=== PATIENT | female | born 1990 ===

== ENCOUNTER 2017-03-08 21:48 | Emergency (ER) | payer OTHER ==
[~2017-03-08] VITALS: Ht 152.4 cm; Wt 85.7 kg
[~2017-03-08 21:48] MED LIST: ANTIVERT 25MG #1 PAC PO; EPIPEN 2-PAK1 MG/ML IM; FIORICET 325 MG1 TAB PO; PROTONIX 40MG T40 MG PO; SUCRALFATE1 GM PO; VICODIN5-300 PO
--- NOTE | 2017-03-08 22:58 | ED GENERAL ADULT ---
History of Present Illness General Chief Complaint: Sore Throat, Dental Pain Stated Complaint: R SIDED JAW AND THROAT PAIN, SEEING DENTIST SAT Source: patient Exam Limitations: no limitations Vital Signs & Intake/Output Vital Signs & Intake/Output Vital Signs Date Time Temp Pulse Resp B/P B/P Pulse O2 O2 Flow FiO2 Mean Ox Delivery Rate 03/083 97.8 69 18 138/92 98 Room Air Allergies Coded Allergies: morphine (RASH AT IV SITE 01/01/16) venom-honey bee (BEE VENOM (HONEY BEE)) (ANAPHYLAXIS 01/01/16) Reconcile Medications Epinephrine (Epipen 2-Destin Auto-Injector) 1 MG/ML KIT 0.3 mg IM PRN PRN SEVERE ALLERGIC REACTION Oxycodone HCl/Acetaminophen (Percocet 5-325 MG Tablet) 5 MG-325 MG TABLET 1 TAB PO BID PAIN Penicillin V Potassium 500 MG TABLET 1 TAB PO TID PHARYGITIS Triage Note: PRESENTS TO ED FOR EVALUATION OF RIGHT BOTTOM JAW PAIN. REPORTS TO HAVE AN APPOINTMENT WITH DENTIST THIS UPCOMING SATURDAY. HAS BEEN TAKING MOTRIN AND TYLENOL WITIH LITTLE PAIN RELIEVE. Triage Nurses Notes Reviewed? yes Onset: Abrupt Duration: day(s): Timing: recent history : No Patient currently breastfeeds: No HPI: 03/08/17 11 PM 27-year-old female presents to the emergency department for severe right sided facial pain. The patient states she was in her usual state of health until approximately 4 days ago when she developed right-sided facial pain. She says is so painful when she opens and closes her jaw it hurts and she has limited ability to do this. She also has a sore throat. She also has right ear pain. She denies fever. She says she does have a history of having wisdom teeth extracted in the upper jaw for a similar problem years ago. She called her dentist but has not been able to follow up with him yet. The onset of the symptoms was gradual, the duration has been 4-5 days, the severity significant as her symptoms required her to come to the emergency department for care. On physical exam she is in mild distress secondary to pain. Past History Travel History Traveled to [place] past 21 day No Medical History Any Pertinent Medical History? 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 No Review of Systems Review of Systems Constitutional: Denies: fever. EENTM: Reports: see HPI. Respiratory: Denies: short of breath. Cardiovascular: Denies: chest pain. GI: Denies: abdominal pain. Genitourinary: Reports: no symptoms. Musculoskeletal: Reports: no symptoms. Skin: Reports: no symptoms. Neurological/Psychological: Reports: no symptoms. Hematologic/Endocrine: Reports: no symptoms. Immunologic/Allergic: Reports: no symptoms. Physical Exam Physical Exam General Appearance: alert, awake, anxious, mild distress Head: atraumatic Eyes: Bilateral: normal appearance, PERRL, EOMI. Ears, Nose, Throat: normal pharynx Neck: supple, lymphadenopathy (R) Respiratory: chest non-tender, no respiratory distress Cardiovascular: regular rate/rhythm Gastrointestinal: soft, non-tender Back: normal range of motion Extremities: normal inspection, normal range of motion, no edema Neurologic/Psych: no motor/sensory deficits, awake, alert, oriented x 3 Skin: intact, normal color, warm/dry Comments: On physical exam she does have bilateral anterior cervical adenopathy right greater than left. The posterior pharynx is normal. There is no stridor. There is no brawny edema to the mouth. There is no tongue protrusion. There is no evidence of peritonsillar abscess. No uvular deviation. Core Measures ACS in differential dx? No CVA/TIA Diagnosis: No Severe Sepsis Present: No Septic Shock Present: No Progress Differential Diagnoses I considered the following diagnoses in my evaluation of the patient: [Cb angina, peritonsillar abscess, retropharyngeal abscess, dental abscess, dental caries, facial cellulitis, otitis media] Plan of Care: Current Medications Sig/Ambrocio Start time Last Medication Dose Stop Time Status Admin Dexamethasone 8 MG ONCE ONE 03/08 2300 UNVr (Decadron) 03/08 2301 Ketorolac 60 MG ONCE ONE 03/08 2300 UNVr Tromethamine 03/08 2301 (Toradol) Penicillin V 500 MG ONCE ONE 03/08 2300 UNVr Potassium 03/08 2301 (Pen V K 250MG. Tablet) Initial ED EKG: none Departure Departure Disposition: HOME OR SELF CARE Condition: Stable Clinical Impression Primary Impression: Dental caries Secondary Impressions: Pharyngitis Referrals: PATIENT HAS NO PRIMARY CARE DR (PCP/Family) Departure Forms: Customer Survey General Discharge Information Prescriptions: Current Visit Scripts Penicillin V Potassium 1 TAB PO TID #30 TAB Oxycodone HCl/Acetaminophen (Percocet 5-325 MG Tablet) 1 TAB PO BID #10 TAB Comments Patient was treated with Decadron IM Toradol in the emergency department. She was given penicillin and Percocet to go home. She was instructed to follow-up with her dentist tomorrow She has tenderness to the find her #17 right sided posterior molar. The #18 tooth has been extracted. No palpable abscess. Critical Care Note Critical Care Note Critical Care Time: non-applicable
[2017-03-08] MEDS ORDERED: PENICILLIN V P500 M1 PO (23:06)
[2017-03-08] MEDS ORDERED: PERCOCET 5-3251 EACH PO (23:06)
[2017-03-08 23:16] VITALS: BP 125/82
== END 2017-03-08 23:18 ==
LOC: ERH 21:48
DX: K02.9 Dental caries, unspecified (principal); J02.9 Acute pharyngitis, unspecified
CPT/HCPCS: 96372; J1885

== ENCOUNTER 2018-01-28 17:53 | Emergency (ER) | payer OTHER ==
[~2018-01-28] VITALS: Ht 152.4 cm; Wt 90.7 kg
[~2018-01-28 17:53] MED LIST changes: +PENICILLIN V P500 M1 PO; +PERCOCET 5-3251 EACH PO
[2018-01-28 19:15] LABS: ABSOLUTE BASOPHIL COUNT 0 /CUMM (0.0-0.2); ABSOLUTE EOSINOPHIL COUNT 0.3 /CUMM (0.0-0.7); ABSOLUTE GRANULOCYTE CT 4.3 /CUMM (1.4-6.5); ABSOLUTE LYMPH COUNT 3.4 /CUMM (1.2-3.4); ABSOLUTE MONOCYTE COUNT 0.7 /CUMM (0.10-0.60); BASOPHIL % 0.4 % (0.0-2.0); GRANULOCYTE % 49.4 % (42.2-75.2); HEMATOCRIT 39.7 % (37-47); MEAN CORPUSCULAR HGB 28.6 PG (27.0-31.0); MEAN CORPUSCULAR HGB CONC 32.8 G/DL (33.0-37.0); MEAN CORPUSCULAR VOLUME 87.1 FL (81.0-99.0); MEAN PLATELET VOLUME 8.1 FL (7.4-10.4); PLATELET COUNT 324 /CUMM (130-400); RBC DISTRIBUTION WIDTH 13.3 % (11.5-14.5); RED BLOOD CELL CT 4.56 /CUMM (4.20-5.40); WHITE BLOOD CELL COUNT 8.8 /CUMM (4.8-10.8)
--- NOTE | 2018-01-28 21:12 | RADIOLOGY REPORT ---
EXAMINATION: XR CHEST CLINICAL INFORMATION: Chest pain. COMPARISON: None TECHNIQUE: 2 views of the chest were obtained. FINDINGS: No airspace opacities or pleural effusions are seen. The cardiomediastinal silhouette is normal. No acute osseous abnormality is seen. IMPRESSION: Clear lungs. No acute process.
--- NOTE | 2018-01-28 21:24 | ED CARDIAC/CP/PALPITATIONS ---
History of Present Illness General Chief Complaint: Chest Pain Stated Complaint: CHEST PAIN Source: patient, old records Exam Limitations: no limitations Vital Signs & Intake/Output Vital Signs & Intake/Output Vital Signs Date Time Temp Pulse Resp B/P B/P Pulse O2 O2 Flow FiO2 Mean Ox Delivery Rate 01/289 98.9 69 18 139/78 98 Room Air 01/28 1902 98.6 78 16 136/89 97 Room Air Allergies Coded Allergies: morphine (RASH AT IV SITE 01/01/16) venom-honey bee (BEE VENOM (HONEY BEE)) (ANAPHYLAXIS 01/01/16) Reconcile Medications Epinephrine (Epipen 2-Destin Auto-Injector) 1 MG/ML KIT 0.3 mg IM PRN PRN SEVERE ALLERGIC REACTION Oxycodone HCl/Acetaminophen (Percocet 5-325 MG Tablet) 5 MG-325 MG TABLET 1 TAB PO BID PAIN Penicillin V Potassium 500 MG TABLET 1 TAB PO TID PHARYGITIS Triage Note: PT STATES SHE WAS HAVING 2 EPISODES OF TIGHTNESS IN HER CHEST THAT LASTED TWO TO THREE MINUTES A PIECE. PT STATES SHE WAS HAVING SOB DURING TWO EPISODES. PT STATES SHE WAS JUST WALKING AROUND THE HOUSE AND THE PAIN BEGAN. Triage Nurses Notes Reviewed? yes Onset: Abrupt Duration: minute(s):, better, resolved prior to arrival Timing: recent history Quality/Severity: mild, aching Location: substernal Radiation: no radiation Activities at Onset: none Prior Chest Pain/Card Workup: SIMILAR SYMPTOMS Nitro Today/Relief: no nitro taken today Aspirin Today: no aspirin today Associated Symptoms: DENIES : No Patient currently breastfeeds: No HPI: 28-year-old female history of asthma presents to the ER for evaluation complaining of intermittent episodes of left-sided chest pain non-radiating that lasts 1-2 minutes prior to resolving on its own. She denies radiation of the pain into her arm neck or jaw. She has had similar episodes in the past however has not sought care. She denies any associated shortness of breath or pain with inspiration. She is not had any episodes since 4:00 today. Symptoms were not associated with rest eating and drinking. No abdominal pain nausea vomiting. She does not smoke. No family history of same cardiac disease. She is on control no recent immobility (Bouchra WORKMAN,Lul) Past History Travel History Traveled to [place] past 21 day No Medical History Any Pertinent Medical History? 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 No (Lul Muhammad) Review of Systems Review of Systems Constitutional: Reports: see HPI. Comments Review of systems: See HPI, All other systems negative. Constitutional, no chills no fever, HEENT: no sore throat no congestion, no ear pain Cardiovascular: chest pain , no palpitation Skin: no rashes, no change in skin Respiratory: No dyspnea no cough no sputum no hemoptysis GI: No nausea no vomiting, no diarrhea, no bloating/constipation Muscle skeletal: No joint pain, no back pain Neurologic: , no headache Heme/endocrine: No bruising Immunology: No lymphadenopathy (Lul Muhammad) Physical Exam Physical Exam General Appearance: well developed/nourished, no apparent distress, alert Cardiovascular: regular rate/rhythm Comments: Well-developed well-nourished person in no acute distress HEENT: Normal EENT exam; PERRL, EOMI, HEAD is atraumatic. moist mucous membranes. Neck: Supple, normal range of motion without pain or tenderness Back: N Full range of motion Cardiovascular: Regular rate and rhythms no murmurs rub Respiratory: Chest nontender.There were no bony deformities, no asymmetry. No respiratory distress. Patient speaking in full complete sentences. Breath sounds clear to auscultation bilaterally: NO W/R/R Abdomen: Soft, nontender Extremity: No edema, full range of motion of extremities Neuro: Alert oriented x3, motor sensory normal, There were no obvious focal neurologic abnormalities. Skin: No appreciable rash on exposed skin, skin is warm and dry. Psych: Mood and affect is normal, memory and judgment is normal. Core Measures ACS in differential dx? Yes CVA/TIA Diagnosis No Sepsis Present: No Sepsis Focused Exam Completed? No All Positive = PERC Ruled Out: Positive: age < 50 years, heart rate < 100 bpm, O2 sat > 94%, no hemoptysis, no hormone use, no prior DVT or PE, no unilateral leg swellin, no surgery/trauma w/ in 4w. (Bouchra OWRKMAN,uLl) Progress Differential Diagnosis: AMI, aortic dissection, atrial fibrillation, CHF/pulm edema, musculoskeletal pain, myocarditis, pericarditis, pneumonia, pulmonary embolism, unstable angina Plan of Care: Orders Procedure Date/time Status Add-on Test (ER Only) 01/29 1916 Active TROPONIN LEVEL 01/28 1906 Complete HUMAN BETA HCG SCREEN 01/28 1906 Complete COMPREHENSIVE METABOLIC PANEL 01/28 1906 Complete CBC WITHOUT DIFFERENTIAL 01/28 1906 Complete EKG 01/28 1802 Active Laboratory Tests 01/28/181915: Urine Color Cancelled, Urine Clarity Cancelled, Urine pH Cancelled, Ur Specific Warren Cancelled, Urine Protein Cancelled, Urine Ketones Cancelled, Urine Nitrite Cancelled, Urine Bilirubin Cancelled, Urine Urobilinogen Cancelled, Ur Leukocyte Esterase Cancelled, Ur Microscopic Cancelled, Urine Hemoglobin Cancelled, Urine Glucose Cancelled 01/28/181905: Anion Gap 11, Estimated GFR > 60, BUN/Creatinine Ratio 16.3, Glucose 104 H, Calcium 9.3, Total Bilirubin 0.5, AST 22, ALT 31, Alkaline Phosphatase 45, Troponin I < 0.01, Total Protein 7.7, Albumin 4.3, Globulin 3.4, Albumin/ Globulin Ratio 1.3, Total Beta HCG NEGATIVE, CBC w Diff NO MAN DIFF REQ, RBC 4.56, MCV 87.1, MCH 28.6, MCHC 32.8 L, RDW 13.3, MPV 8.1, Gran % 49.4, Lymphocytes % 39.2, Monocytes % 8.0, Eosinophils % 3.0, Basophils % 0.4, Absolute Granulocytes 4.3, Absolute Lymphocytes 3.4, Absolute Monocytes 0.7 H, Absolute Eosinophils 0.3, Absolute Basophils 0 PERC NEGATIVE. I discussed with the patient at length all of her results she is permitted a symptomatically in the ER normal sinus on the monitor. Patient's troponin negative low risk no family history of sudden cardiac disease I discussed with her plan of care she has had similar episodes in the past per her friend. I discussed with the plan of care she'll follow-up with primary care. Diagnostic Imaging: Viewed by Me: Radiology Read. Discussed w/RAD: Radiology Read. Radiology Impression: PATIENT: RUDI LIVINGSTON PRESENT AGE: 28 PATIENT ACCOUNT NO: [id number] : 89 LOCATION: [facility] ORDERING PHYSICIAN: David WORKMAN SERVICE DATE: 01/28/18 EXAM TYPE: RAD - XRY- CHEST XRAY, TWO VIEWS EXAMINATION: XR CHEST CLINICAL INFORMATION: Chest pain. COMPARISON: None TECHNIQUE: 2 views of the chest were obtained. FINDINGS: No airspace opacities or pleural effusions are seen. The cardiomediastinal silhouette is normal. No acute osseous abnormality is seen. IMPRESSION: Clear lungs. No acute process. DICTATED BY: Lasha Blackwood MD DATE/TIME DICTATED:08/07 HOUSING QUALITY STANDARD INSPECTOR:CECILIO DATE/TIME TRANSCRIBED:01/28/182101 CONFIDENTIAL, DO NOT COPY WITHOUT APPROPRIATE AUTHORIZATION. <Electronically signed in Other Vendor System> SIGNED BY: Lasha Blackwood MD 01/28/182111 Initial ED EKG: normal intervals, normal p-waves, normal QRS complex, normal sinus rhythm Rhythm Strip: normal sinus rhythm (Lul Muhammad) Departure Departure Time of Disposition: 2130 Disposition: HOME OR SELF CARE Condition: Stable Clinical Impression Primary Impression: Atypical chest pain Referrals: Patient Has No Primary Care Dr (PCP/Family) Additional Instructions: Follow-up with your primary care physician Tylenol Motrin if needed. Return with any concerns. Departure Forms: Customer Survey General Discharge Information (Lul Muhammad) PA/AWNING HANGER Co-Sign Statement Statement: ED Attending supervision documentation- [] I saw and evaluated the patient. I have also reviewed all the pertinent lab results and diagnostic results. I agree with the findings and the plan of care as documented in the PA's/AWNING HANGER's documentation. [X] I have reviewed the ED Record and agree with the PA's/AWNING HANGER's documentation. [] Additions or exceptions (if any) to the PAs/AWNING HANGER's note and plan are summarized below: [] (Barak Cannon DO) Critical Care Note Critical Care Note Critical Care Time: non-applicable (Lul Muhammad)
[2018-01-28 21:49] VITALS: BP 139/78
== END 2018-01-28 21:58 ==
LOC: ERH 17:53
PROVIDERS: Physician Assistant Medical
DX: R07.89 Other chest pain (principal)
CPT/HCPCS: 71046; 93005; 93010

== ENCOUNTER 2018-05-14 16:50 | Emergency (ER) | payer OTHER ==
[2018-05-14 16:55] VITALS: BP 130/90
--- NOTE | 2018-05-14 17:23 | RADIOLOGY REPORT ---
EXAMINATION: 1. RIGHT ANKLE. 2. RIGHT FOOT. CLINICAL INFORMATION: Right foot pain. Right ankle pain. COMPARISON: Right ankle 01/01/2016. TECHNIQUE: 1. Right Ankle. 3 views 2. Right foot. 3 views FINDINGS: 1. Right ankle. There is no fracture. There is no dislocation. The ankle mortise is congruent. There is no significant arthropathy. There is no soft tissue abnormality. 2. Right foot. There is no fracture. There is no dislocation. The bone and joints are normal. IMPRESSION: 1. Right ankle. Normal. 2. Right foot. Normal.
--- NOTE | 2018-05-14 17:46 | ED ANKLE/FOOT INJURY COMPLAINT ---
History of Present Illness General Chief Complaint: Foot or Ankle Injury Stated Complaint: R FT INJURY Source: patient Exam Limitations: no limitations Vital Signs & Intake/Output Vital Signs & Intake/Output Vital Signs Date Time Temp Pulse Resp B/P B/P Pulse O2 O2 Flow FiO2 Mean Ox Delivery Rate 05/14 1655 97.6 97 17 130/90 99 Room Air Allergies Coded Allergies: morphine (RASH AT IV SITE 01/01/16) venom-honey bee (BEE VENOM (HONEY BEE)) (ANAPHYLAXIS 01/01/16) Reconcile Medications Epinephrine (Epipen 2-Destin Auto-Injector) 1 MG/ML KIT 0.3 mg IM PRN PRN SEVERE ALLERGIC REACTION Oxycodone HCl/Acetaminophen (Percocet 5-325 MG Tablet) 5 MG-325 MG TABLET 1 TAB PO BID PAIN Penicillin V Potassium 500 MG TABLET 1 TAB PO TID PHARYGITIS Triage Note: PT TO ED WITH C/O RIGHT FOOT PAIN. REPORTS BAD SPRAIN THIS PAST AUGUST. REPORTS SHE WOKE TODAY WITH PAIN AND SWELLING TO SAME FOOT. STATES HAS HAD PT FOR SAME FOOT RECENTLY. ABLE TO WEIGHT BEAR. Triage Nurses Notes Reviewed? yes Duration: day(s):, constant Timing: recent history Severity: mild, moderate Pain/Injury Location: Right: Foot, Ankle. No Modifying Factors: none : No Patient currently breastfeeds: No HPI: 28-year-old female comes into the emergency room with right ankle/foot pain. She reports that she injured it in the fall of last year. Patient reports that she woke up today with increased pain over the same spot. Denies any recent falls or trauma that she can recall. Comes in for further evaluation. Denies any other associated symptoms. (Sachin Solis) Past History Travel History Traveled to [place] past 21 day No Medical History Any Pertinent Medical History? 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 No (Sachin Solis) Review of Systems Review of Systems Constitutional: Reports: no symptoms. EENTM: Reports: no symptoms. Respiratory: Reports: no symptoms. Cardiovascular: Reports: no symptoms. GI: Reports: no symptoms. Genitourinary: Reports: no symptoms. Musculoskeletal: Reports: see HPI. Skin: Reports: no symptoms. Neurological/Psychological: Reports: no symptoms. Hematologic/Endocrine: Reports: no symptoms. Immunologic/Allergic: Reports: no symptoms. All Other Systems: Reviewed and Negative (Sachin Solis) Physical Exam Physical Exam General Appearance: well developed/nourished, mild distress Head: atraumatic Eyes: Bilateral: normal appearance. Ears, Nose, Throat: normal ENT inspection, hearing grossly normal Neck: normal inspection Cardiovascular/Respiratory: no respiratory distress Back: normal inspection Leg/Knee/Thigh Left: normal inspection Ankle Right: soft tissue tenderness, swelling, tenderness, limited range of motion Foot Right: soft tissue tenderness, swelling Neuro/Vascular: normal motor function, normal sensation Tendon: normal tendon function Psychiatric: awake, alert, oriented x 3 Skin: intact, normal color, warm/dry (Sachin Solis) Progress Differential Diagnosis: fracture, dislocation, sprain, contusion Plan of Care: Orders Procedure Date/time Status Durable Medical Equipment 05/14 1746 Active Diagnostic Imaging: Viewed by Me: Radiology Read. Discussed w/RAD: Radiology Read. Radiology Impression: PATIENT: RUDI LIVINGSTON PRESENT AGE: 28 PATIENT ACCOUNT NO: [id number] : 89 LOCATION: [facility] ORDERING PHYSICIAN: Sachin WORKMAN SERVICE DATE: 05/14/18 EXAM TYPE: RAD - XRY-ANKLE 3 OR MORE VIEWS R; XRY-FOOT COMPLETE, R EXAMINATION: 1. RIGHT ANKLE. 2. RIGHT FOOT. CLINICAL INFORMATION: Right foot pain. Right ankle pain. COMPARISON: Right ankle 01/01/2016. TECHNIQUE: 1. Right Ankle. 3 views 2. Right foot. 3 views FINDINGS: 1. Right ankle. There is no fracture. There is no dislocation. The ankle mortise is congruent. There is no significant arthropathy. There is no soft tissue abnormality. 2. Right foot. There is no fracture. There is no dislocation. The bone and joints are normal. IMPRESSION: 1. Right ankle. Normal. 2. Right foot. Normal. DICTATED BY: Hakeem Piper MD DATE /TIME DICTATED:05/14/181716 ACID SUPERVISOR:CECILIO DATE/TIME TRANSCRIBED: 05/14/18 / 1716 CONFIDENTIAL, DO NOT COPY WITHOUT APPROPRIATE AUTHORIZATION. < Electronically signed in Other Vendor System> SIGNED BY: Hakeem Piper MD [id number] Comments: 05/14/2018 6:28:18 PM Patient clinically looks well. In no apparent distress. Nontoxic-appearing. No evidence of acute trauma. (Sachin Solis) Departure Departure Disposition: HOME OR SELF CARE Condition: Stable Clinical Impression Primary Impression: Right ankle sprain Referrals: Unknown (PCP/Family) Additional Instructions: Ice. Rest. Motrin for pain. Elevation. Follow-up with orthopedic doctor provided if not better in 3-5 days. If symptoms do not improve you'll require further evaluation with possible repeat x-rays as well as evaluation by human resources services specialist. Sprains can last anywhere from days to weeks. No high impact running or jumping if you have an ankle sprain or any type of lower extremity sprain. Return to normal activity only after symptoms have resolved. Please go over all results of today's visit with your primary care doctor. Contact your primary care doctor to let them know you were here in the emergency room. There may be nonspecific findings which may not be related to your visit today here in the emergency room but may require further evaluation and chronic monitoring by your primary care doctor. If you had a laceration today the chance of foreign body always remains. You should follow-up with your primary care doctor for recheck in 3-5 days for a wound check. If you had an x-ray done there is a chance that a fracture could have been missed on initial read and you should follow-up with your primary care doctor for repeat x-rays if symptoms persist. If your blood pressure was elevated here in the emergency room please have rechecked by [facility] primary care doctor within the next 48. If you were prescribed a narcotic here in the emergency room or any type of controlled substances you're not allowed to drive while taking this medication or operate any type of heavy machinery. Narcotics can make you feel lightheaded dizziness nausea and can cause constipation. You may need to cherry picker operator a stool softener. Thank you for choosing [facility] emergency room. Please return to the emergency room immediately if you have any other concerns worsening of symptoms. Departure Forms: Customer Survey General Discharge Information (Sachin Solis) PA/TAI CHI INSTRUCTOR Co-Sign Statement Statement: ED Attending supervision documentation- [] I saw and evaluated the patient. I have also reviewed all the pertinent lab results and diagnostic results. I agree with the findings and the plan of care as documented in the PA's/TAI CHI INSTRUCTOR's documentation. [x] I have reviewed the ED Record and agree with the PA's/TAI CHI INSTRUCTOR's documentation. [] Additions or exceptions (if any) to the PAs/TAI CHI INSTRUCTOR's note and plan are summarized below: [] (Wayne Davis DO) Procedures Splinting Location: RIGHT ANKLE Manual Alignment Performed: No Pre-Made Type: ANKLE STIRRUPS Splint Applied By: splint applied by me Pre-Proc Neuro Vasc Exam: normal Post-Proc Neuro Vasc Exam: normal (Sachin Solis)
== END 2018-05-14 17:52 ==
LOC: ERH 16:50
DX: S93.401A Sprain of unspecified ligament of right ankle, initial encounter (principal); X58.XXXA Exposure to other specified factors, initial encounter
CPT/HCPCS: 73610-RT; 73630-RT